=== PATIENT | female | born 1980 | race American Indian/Alaskan Native ===

== ENCOUNTER 2017-07-18 05:37 | Day surgery (SDC) | payer MEDICAID ==
[~2017-07-18 05:37] MED LIST: MARCAINE 0.5% INFILTRATI ONE; NACL 0.9% IR ONE
[2017-07-18] MEDS ORDERED: NACL BACTERIOSTATIC INFILTRATI ONE (07:29)
[2017-07-18 07:44] LABS: Hematocrit 40.5 % (30.3-42.9); Hemoglobin 13.6 gm/dl (10.1-14.3)
--- NOTE | 2017-07-18 07:59 | Anesthesia Consultation ---
Anesthesia Consult and Med Hx Date of service: 07/18/17 - Airway Anesthetic Teeth Evaluation: Good ROM Head & Neck: Adequate Mental/Hyoid Distance: Adequate Mallampati Class: Class II Intubation Access Assessment: Probably Good - Pulmonary Exam CTA: Yes - Cardiac Exam Cardiac Exam: RRR Anesthetic Concerns: front veneers - Pre-Operative Health Status ASA Pre-Surgery Classification: ASA1 Proposed Anesthetic Plan: General - Central Nervous System Hx Psychiatric Problems: No - Hematic Hx Sickle Cell Disease: Yes (Trait only) - Other Systems Hx Alcohol Use: Yes (occas) Hx Cancer: No
[2017-07-18] MEDS ORDERED: VERSED IV NR (08:00)
[2017-07-18] MEDS ORDERED: PEPCID IV NR (08:00)
[2017-07-18] MEDS ORDERED: ZOFRAN IV PRN (08:00)
[2017-07-18] MEDS ORDERED: PERCOCET 5/325 PO PRN (08:00)
--- NOTE | 2017-07-18 08:00 | Anesthesia Day of Surgery ---
Anesthesia Day of Surgery - Day of Surgery Patient Examined: Yes Patient H&P Reviewed: Yes Patient is NPO: Yes
[2017-07-18] MEDS ORDERED: XYLOCAINE MPF 2% ONE (08:11)
[2017-07-18] MEDS ORDERED: ZEMURON IV ONE (08:11)
[2017-07-18] MEDS ORDERED: SUBLIMAZE ONE (08:11)
[2017-07-18] MEDS ORDERED: DIPRIVAN 10 MG/ML IV ONE (08:11)
[2017-07-18] MEDS ORDERED: ceFAZolin 1 GM in NACL 0.9% 20 ML IV SCH (08:15)
[2017-07-18] MEDS ORDERED: ANCEF/STERILE WATER 2 GM/20 ML 2 GM/20 ML SYRINGE IV ONE (08:29)
--- NOTE | 2017-07-18 08:29 | Short Stay Summary ---
Short Stay Documentation Date of service: 07/18/17 Narrative H&P: Pt is a 37yo BF LMP 06/14/17 presents for permanent sterilization. - History Principal diagnosis: Desires permanent sterilization H&P: obtained from office Past Medical History: No medical history Past Surgical History: Other (Breast augmentation) Social history: no significant social history, single - Allergies and Medications Current Medications: Allergies No Known Allergies Allergy (Verified 07/18/17 07:25) Home Medications Medication Instructions Recorded Confirmed Last Taken Type No Known Home Medications [No 07/12/17 07/12/17 Unknown History Reported Home Medications] Active Medications Famotidine (Pepcid) 20 mg IV PREOP NR Stop: 07/18/17 12:00 Last Admin: 07/18/17 08:17 Dose: 20 mg Hydromorphone HCl (Dilaudid) 0.5 mg IV Q10MIN PRN PRN Reason: Pain , Severe (7-10) Stop: 07/18/17 15:00 Lactated Ringer's (Lactated Ringers) 1,000 mls @ 100 mls/hr IV DIRECT AGA Last Admin: 07/18/17 08:16 Dose: 100 mls/hr Cefazolin Sodium 1 gm/ Sodium (Chloride) 20 mls @ 20 mls/10 min IV PREOP AGA PRN Reason: Protocol Stop: 07/18/17 10:30 Midazolam HCl (Versed) 2 mg IV PREOP NR Stop: 07/18/17 23:59 Ondansetron HCl (Zofran) 4 mg IV ONCE PRN PRN Reason: Nausea And Vomiting Stop: 07/18/17 10:00 Oxycodone/Acetaminophen (Percocet 5/325) 1 tab PO ONCE PRN PRN Reason: Pain, Moderate (4-6) Stop: 07/18/17 10:00 - Physical exam General appearance: no acute distress Integumentary: no rash HEENT: Atraumatic Lungs: Clear to auscultation Breasts: deferred Heart: Regular rate Gastrointestinal: normal Female Genitourinary: deferred Rectal Exam: deferred Extremities: no ischemia Neurological: Normal speech - Brief post op/procedure progress note Date of procedure: 07/18/17 Pre-op diagnosis: Desires permanent sterilization Post-op diagnosis: same Procedure: Laproscopic Bilateral Tubal Ligation Anesthesia: GETA Findings: Normal uterus . Normal tubes and ovaries bilaterally. Surgeon: MATTHIAS SUERO Estimated blood loss: minimal Pathology: none Condition: stable - Hospital course Hospital course: Unremarkable. - Disposition Condition at discharge: Good Disposition: DC-01 TO HOME OR SELFCARE - Discharge Diagnoses (1) Encounter for sterilization Status: Resolved Short Stay Discharge Plan Activity: no restrictions Diet: regular Wound: open to air, keep clean and dry Follow up with: MATTHIAS SUERO MD [Staff Physician] - 14 Days Prescriptions: HYDROcodone/APAP 5-325 [[place] 5/325] 1 each PO Q6HR PRN #20 tablet PRN Reason: Pain
[2017-07-18] MEDS ORDERED: MARCAINE 0.5% INFILTRATI ONE (08:33)
[2017-07-18] MEDS ORDERED: NACL 0.9% IR ONE (08:33)
[2017-07-18] MEDS ORDERED: ZOFRAN ONE (08:55)
[2017-07-18] MEDS ORDERED: DECADRON ONE (08:55)
[2017-07-18] MEDS ORDERED: LACTATED RINGERS 1,000 ML IV SCH (09:00)
[2017-07-18] MEDS ORDERED: ANCEF/STERILE WATER 2 GM/20 ML IV NR (09:30)
--- NOTE | 2017-07-18 09:42 | Post Anesthesia Evaluation ---
- Post Anesthesia Evaluation Patient Participated: Yes Airway Patent: Yes Stable Respiratory Function: Yes Temp > 96.8F: Yes Pain Manageable: Yes Adequeate Hydration: Yes Anesthesia Complications: No
--- NOTE | 2017-07-18 09:45 | Operative Report ---
Operative Report Operative Report: PREOPERATIVE DIAGNOSIS: Desires permanent sterilization POSTOPERATIVE DIAGNOSIS: Same OPERATIVE PROCEDURE: Laparoscopic bilateral tubal ligation. SURGEON: Elijah Ledesma MD ANESTHESIA: Gen. endotracheal intubation ANESTHESIOLOGIST: Dr. Bai ESTIMATED BLOOD LOSS: Minimal FINDINGS: Normal uterus. Normal tubes and ovaries bilaterally. COMPLICATIONS: None COUNTS: Correct x3. PROCEDURE: After the patient was correctly identified and after general anesthesia was administered, the patient was prepped and draped in usual sterile fashion and placed in dorsal lithotomy position. First, the bladder was emptied using a straight catheter. Next, a speculum was placed in the vaginal vault and the anterior lip of the cervix was grasped using a single- tooth tenaculum. The uterine manipulator was then placed and the tenaculum and speculum were removed. Attention was then turned to the abdomen where first a periumbilical incision was made using a skin knife, and the Optiview trocar was inserted under direct visualization. After an adequate amount of abdominal insufflation, visualization of the pelvic organs found the uterus to be normal, and the tubes and ovaries to be normal bilaterally. Next, the left fallopian tube was grasped using the Kleppingers, and after identifying the fimbriated end of the left tube, this tube was cauterized in 3 continuous places along the proximal portion of the left tube. The same procedure was performed on the right fallopian tube after first identifying the fimbriated end of the right tube. This tube was also cauterized in 3 continuous places along the proximal portion of the right tube. At this point, the procedure was then considered complete. All instruments were removed from the abdomen. The abdomen was deflated and the periumbilical incision was closed using 0 Vicryl suture in a [id number] configuration on the fascia, followed by 4-0 Monocryl suture in subcuticular fashion on the skin. The incision was also infiltrated using 0.5% Marcaine solution. The uterine manipulator was removed. The patient tolerated the procedure well and was transferred to recovery room stable condition.
[2017-07-18] MEDS: DILAUDID IV PRN ×2 (09:55→10:09)
[2017-07-18] MEDS ORDERED: NORCO 5/325 PO PRN (10:30)
[2017-07-18 11:48] VITALS: BP 102/70
== END 2017-07-18 11:35 | disposition home or self-care (01) ==
LOC: OR 05:37
PROVIDERS: ATTEND Obstetrics & Gynecology
DX: Z30.2 Encounter for sterilization (principal); D57.3 Sickle-cell trait; Z98.890 Other specified postprocedural states; Z79.899 Other long term (current) drug therapy
CPT/HCPCS: 36415; 58670; 81025; 85014; 85018; J0690; J1100; J1170; J2250; J2405; J2704; J3010; J7120